=== PATIENT | female | born 1975 | race Caucasian/White ===

== ENCOUNTER 2017-04-19 16:37 | Emergency (ER) | payer BC ==
[~2017-04-19] VITALS: Ht 175.3 cm; Wt 104.3 kg
[2017-04-19] MEDS ORDERED: PRILOSEC20 MG PO (17:20)
[2017-04-19] MEDS ORDERED: PROVENTIL2.5 MG/3 M INH (17:21)
[2017-04-19] MEDS ORDERED: SEASONIQUE 0.11 EACH PO (17:22)
[2017-06-05] MEDS ORDERED: ATIVAN0.5 M1 PO (13:14)
[2017-06-05] MEDS ORDERED: VENTOLIN HFA18 GM INH (13:14)
[2017-06-05] MEDS ORDERED: SAVELLA50 MG PO (13:15)
[2017-06-05] MEDS ORDERED: VITAMIN E400 UNI2 PO (13:15)
[2017-06-05] MEDS ORDERED: GENICIN500 MG PO (13:16)
[2017-06-05] MEDS ORDERED: ULTRAM50 MG PO (13:16)
[2017-06-05] MEDS ORDERED: KEFLEX500 MG PO (13:17)
[2017-06-05] MEDS ORDERED: ZOFRAN ODT8 MG PO (13:17)
== END 2017-04-19 17:19 | disposition short-term general hospital (02) ==
LOC: ER 16:37
DX: I80.8 Phlebitis and thrombophlebitis of other sites (principal); K21.9 Gastro-esophageal reflux disease without esophagitis; G43.909 Migraine, unspecified, not intractable, without status migrainosus; J45.909 Unspecified asthma, uncomplicated; Z91.030 Bee allergy status; F17.210 Nicotine dependence, cigarettes, uncomplicated; Z91.018 Allergy to other foods; Z88.8 Allergy status to other drugs, medicaments and biological substances

== ENCOUNTER 2017-04-24 08:19 | Emergency (ER) | payer BC ==
[~2017-04-24] VITALS: Ht 175.3 cm; Wt 104.3 kg
[~2017-04-24 08:19] MED LIST: PRILOSEC20 MG PO; PROVENTIL2.5 MG/3 M INH; SEASONIQUE 0.11 EACH PO
[2017-04-24] MEDS ORDERED: FLONASE16 GM NASBOTH (08:34)
[2017-04-24] MEDS ORDERED: PRILOSEC40 MG PO (08:34)
[2017-04-24] MEDS ORDERED: TRI-PREVIFEM T1 EACH PO (08:36)
[2017-04-24] MEDS ORDERED: TRAZODONE HCL50 MG PO (08:40)
[2017-04-24] MEDS ORDERED: DEPAKOTE ER500 MG PO (08:41)
[2017-06-05] MEDS ORDERED: ATIVAN0.5 M1 PO (13:14)
[2017-06-05] MEDS ORDERED: VENTOLIN HFA18 GM INH (13:14)
[2017-06-05] MEDS ORDERED: SAVELLA50 MG PO (13:15)
[2017-06-05] MEDS ORDERED: VITAMIN E400 UNI2 PO (13:15)
[2017-06-05] MEDS ORDERED: ULTRAM50 MG PO (13:16)
[2017-06-05] MEDS ORDERED: GENICIN500 MG PO (13:16)
[2017-06-05] MEDS ORDERED: ZOFRAN ODT8 MG PO (13:17)
[2017-06-05] MEDS ORDERED: KEFLEX500 MG PO (13:17)
== END 2017-04-24 09:16 | disposition short-term general hospital (02) ==
LOC: ER 08:19
DX: I80.8 Phlebitis and thrombophlebitis of other sites (principal); Z91.030 Bee allergy status; Z91.018 Allergy to other foods; Z88.5 Allergy status to narcotic agent; Z88.8 Allergy status to other drugs, medicaments and biological substances